=== PATIENT | female | born 1995 | race Caucasian/White ===

== ENCOUNTER 2016-09-08 22:12 | Emergency (ER) | payer BC, OTHER ==
[~2016-09-08] VITALS: Ht 167.6 cm; Wt 131.5 kg
[2016-09-08] MEDS ORDERED: NORT10SO PO (22:24)
[2016-09-08] MEDS ORDERED: VALT1TAB PO (23:22)
[2016-09-08] MEDS ORDERED: valACYclovir HCL 500 MG TAB PO ONE (23:30)
[2016-09-08 23:39] VITALS: BP 137/71
== END 2016-09-08 23:48 | disposition home or self-care (01) ==
LOC: M ED 23:25
DX: A60.09 Herpesviral infection of other urogenital tract (principal); N76.0 Acute vaginitis; F32.9 Major depressive disorder, single episode, unspecified

== ENCOUNTER 2017-12-20 19:36 | Emergency (ER) | payer BC, OTHER ==
[2017-12-20] MEDS: NS 1,000 ML IV (22:12)
[2017-12-20 22:22] LABS: BASO # 0.1 10^3/uL (0.0-0.2); BASO % 0.4 % (0.0-1.0); EOS # 0.1 10^3/uL (0.0-0.50); EOS % 0.7 % (0.0-3.0); HEMATOCRIT 41.8 % (36.0-47.0); HEMOGLOBIN 13.4 g/dl (12.0-15.5); IMMATURE GRANULOCYTE % 0.6 % (0-3.0); LYMPH % 23.8 % (24.0-44.0); MEAN CORPUSCULAR HEMOGLOBIN 26.5 pg (27.0-33.0); MEAN CORPUSCULAR HGB CONC 32.1 g/dl (32.0-36.5); MEAN CORPUSCULAR VOLUME 82.6 fl (80.0-96.0); MONO # 0.7 10^3/uL (0.0-0.8); MONO % 5.6 % (0.0-5.0); NEUTROPHILS # 8.7 10^3/uL (1.8-7.7); NEUTROPHILS % 68.9 % (36.0-66.0); PLATELET COUNT, AUTOMATED 414 10^3/uL (150-450); RED BLOOD COUNT 5.06 10^6/uL (4.00-5.40); RED CELL DISTRIBUTION WIDTH 14.2 % (11.5-14.5); WHITE BLOOD COUNT 12.6 10^3/uL (4.0-10.0)
[2017-12-20 22:29] LABS: KETONE, URINE AUTO RFX NEGATIVE (NEGATIVE); LEUKOCYTE ESTERASE UR AUTO RFX NEGATIVE (NEGATIVE); MUCUS, URINE RFX SMALL (NEGATIVE); NITRITE, URINE AUTO RFX NEGATIVE (NEGATIVE); RBC, URINE AUTO RFX 3 /HPF (0-3); SPECIFIC GRAVITY UR AUTO RFX 1.027 (1.002-1.035); SQUAM EPITHELIAL CELL UR AURFX 1 /HPF (0-6); WBC, URINE AUTO RFX 1 /HPF (0-3)
[2017-12-20 22:46] LABS: ALBUMIN 3.2 GM/DL (3.2-5.2); ALKALINE PHOSPHATASE 134 U/L (45-117); ALT/SGPT 18 U/L (12-78); AMYLASE 41 U/L (25-115); ANION GAP 8 MEQ/L (8-16); AST/SGOT 11 U/L (7-37); BILIRUBIN,DIRECT < 0.1 MG/DL (0.0-0.2); BILIRUBIN,TOTAL 0.1 MG/DL (0.2-1.0); BLOOD UREA NITROGEN 14 MG/DL (7-18); CALCIUM LEVEL 8.4 MG/DL (8.5-10.1); CARBON DIOXIDE LEVEL 24 MEQ/L (21-32); CHLORIDE LEVEL 109 MEQ/L (98-107); CREATININE FOR GFR 0.74 MG/DL (0.55-1.30); GLOMERULAR FILTRATION RATE > 60.0 (>60); GLUCOSE, FASTING 98 MG/DL (70-100); LIPASE 118 U/L (73-393); POTASSIUM SERUM 4.3 MEQ/L (3.5-5.1); SODIUM LEVEL 141 MEQ/L (136-145); TOTAL PROTEIN 7.8 GM/DL (6.4-8.2)
== END 2017-12-21 00:12 | disposition home or self-care (01) ==
LOC: M ED 12-21 00:12
DX: I88.0 Nonspecific mesenteric lymphadenitis (principal); F32.9 Major depressive disorder, single episode, unspecified; R16.1 Splenomegaly, not elsewhere classified; Z79.3 Long term (current) use of hormonal contraceptives; Z88.6 Allergy status to analgesic agent
CPT/HCPCS: 74176

== ENCOUNTER → 2017-12-20 | Outpatient (CLI) | payer BC, OTHER ==
[2017-12-20 13:54] LABS: BASO # 0.1 10^3/uL (0.0-0.2); BASO % 0.6 % (0.0-1.0); EOS # 0.1 10^3/uL (0.0-0.50); EOS % 0.7 % (0.0-3.0); HEMATOCRIT 45.5 % (36.0-47.0); HEMOGLOBIN 14.4 g/dl (12.0-15.5); IMMATURE GRANULOCYTE % 0.8 % (0-3.0); LYMPH # 2.2 10^3/uL (1.5-6.5); LYMPH % 18.6 % (24.0-44.0); MEAN CORPUSCULAR HEMOGLOBIN 26.2 pg (27.0-33.0); MEAN CORPUSCULAR HGB CONC 31.6 g/dl (32.0-36.5); MEAN CORPUSCULAR VOLUME 82.7 fl (80.0-96.0); MONO # 0.6 10^3/uL (0.0-0.8); MONO % 4.7 % (0.0-5.0); NEUTROPHILS # 8.8 10^3/uL (1.8-7.7); NEUTROPHILS % 74.6 % (36.0-66.0); PLATELET COUNT, AUTOMATED 385 10^3/uL (150-450); WHITE BLOOD COUNT 11.8 10^3/uL (4.0-10.0)
[2017-12-20 14:15] LABS: ALBUMIN 3.3 GM/DL (3.2-5.2); ALBUMIN/GLOBULIN RATIO 0.79 (1.00-1.93); ALKALINE PHOSPHATASE 147 U/L (45-117); ALT/SGPT 17 U/L (12-78); ANION GAP 10 MEQ/L (8-16); AST/SGOT 30 U/L (7-37); BILIRUBIN,TOTAL 0.4 MG/DL (0.2-1.0); BLOOD UREA NITROGEN 11 MG/DL (7-18); CALCIUM LEVEL 8.7 MG/DL (8.5-10.1); CARBON DIOXIDE LEVEL 23 MEQ/L (21-32); CHLORIDE LEVEL 106 MEQ/L (98-107); CREATININE FOR GFR 0.62 MG/DL (0.55-1.30); GLOMERULAR FILTRATION RATE > 60.0 (>60); GLUCOSE, FASTING 80 MG/DL (70-100); SODIUM LEVEL 139 MEQ/L (136-145); TOTAL PROTEIN 7.5 GM/DL (6.4-8.2)
[2017-12-20 14:24] LABS: POTASSIUM SERUM 5.4 MEQ/L (3.5-5.1)
== END ==
LOC: M WUC 12:13
DX: R10.30 Lower abdominal pain, unspecified (principal); M54.5 Low back pain
CPT/HCPCS: 80053

== ENCOUNTER → 2018-01-25 | Outpatient (REF) | payer BC, OTHER | LOC: M LAB REF 19:17 | DX: N39.0 Urinary tract infection, site not specified (principal) | CPT/HCPCS: 87086 ==

== ENCOUNTER → 2018-02-12 | Outpatient (CLI) | payer BC, OTHER ==
[~2018-02-12] MED LIST: GASTROGRAFIN SOLUTION 30ML (Q9963) As Ordered; ISOVUE-370 76% 100ML VIAL (Q9967) As Ordered
== END ==
LOC: M RAD 09:39
DX: R16.1 Splenomegaly, not elsewhere classified (principal); I88.0 Nonspecific mesenteric lymphadenitis
CPT/HCPCS: Q9963

== ENCOUNTER 2018-02-19 16:13 | Emergency (ER) | payer BC, OTHER ==
[2018-02-19] MEDS: NORCO, ANEXSIA 5/325MG TABLET (HYDROcodone/ACETAMINOPHEN) PO (18:43)
[2018-02-19 18:59] LABS: BASO # 0.1 10^3/uL (0.0-0.2); BASO % 0.6 % (0.0-1.0); EOS # 0.2 10^3/uL (0.0-0.50); EOS % 1.4 % (0.0-3.0); HEMATOCRIT 43.8 % (36.0-47.0); HEMOGLOBIN 14.5 g/dl (12.0-15.5); IMMATURE GRANULOCYTE % 0.8 % (0-3.0); LYMPH # 2.8 10^3/uL (1.5-6.5); LYMPH % 22.1 % (24.0-44.0); MEAN CORPUSCULAR HEMOGLOBIN 26.7 pg (27.0-33.0); MEAN CORPUSCULAR HGB CONC 33.1 g/dl (32.0-36.5); MEAN CORPUSCULAR VOLUME 80.7 fl (80.0-96.0); MONO # 0.8 10^3/uL (0.0-0.8); MONO % 6.5 % (0.0-5.0); NEUTROPHILS # 8.6 10^3/uL (1.8-7.7); NEUTROPHILS % 68.6 % (36.0-66.0); PLATELET COUNT, AUTOMATED 390 10^3/uL (150-450); RED BLOOD COUNT 5.43 10^6/uL (4.00-5.40); RED CELL DISTRIBUTION WIDTH 14.1 % (11.5-14.5); WHITE BLOOD COUNT 12.5 10^3/uL (4.0-10.0)
[2018-02-19 19:12] LABS: KETONE, URINE AUTO RFX NEGATIVE (NEGATIVE); LEUKOCYTE ESTERASE UR AUTO RFX 2+ (NEGATIVE); NITRITE, URINE AUTO RFX NEGATIVE (NEGATIVE); RBC, URINE AUTO RFX 9 /HPF (0-3); SPECIFIC GRAVITY UR AUTO RFX 1.026 (1.002-1.035); SQUAM EPITHELIAL CELL UR AURFX 3 /HPF (0-6); WBC, URINE AUTO RFX 20 /HPF (0-3)
[2018-02-19 21:18] LABS: CHLAMYDIA DNA AMPLIFICATION NEGATIVE (NEGATIVE); GC DNA AMPLIFICATION NEGATIVE (NEGATIVE)
[2018-02-19] MEDS: metroNIDAZOLE (FLAGYL) 500 MG TAB PO (21:49)
== END 2018-02-19 21:58 | disposition home or self-care (01) ==
LOC: M ED 16:13
DX: N76.0 Acute vaginitis (principal); N83.291 Other ovarian cyst, right side; N94.10 Unspecified dyspareunia; Z79.3 Long term (current) use of hormonal contraceptives; Z88.8 Allergy status to other drugs, medicaments and biological substances
CPT/HCPCS: 76856

== ENCOUNTER → 2018-03-12 | Outpatient (REF) | payer BC, OTHER | LOC: M LAB REF 16:51 | DX: J03.90 Acute tonsillitis, unspecified (principal) | CPT/HCPCS: 87081 ==

== ENCOUNTER → 2018-03-20 | Outpatient (REF) | payer OTHER | LOC: M LAB REF 13:59 | DX: Z12.4 Encounter for screening for malignant neoplasm of cervix (principal) ==

== ENCOUNTER → 2018-04-18 | Outpatient (REF) | payer OTHER ==
[2018-04-18 16:55] LABS: APPEARANCE, URINE MANUAL HAZY (CLEAR); COLOR, URINE MANUAL YELLOW (YELLOW)
[2018-04-18 16:56] LABS: BILIRUBIN, URINE MANUAL NEGATIVE (NEGATIVE); BLOOD URINE MANUAL POSITIVE (NEGATIVE); GLUCOSE, URINE (UA) MANUAL NEGATIVE (NEGATIVE); KETONE, URINE MANUAL NEGATIVE (NEGATIVE); LEUKOCYTE ESTERASE, URINE MAN POSITIVE (NEGATIVE); MICROSCOPIC INDICATED? MAN YES (NO); NITRITE, URINE MANUAL POSITIVE (NEGATIVE); PROTEIN, URINE MANUAL TRACE mg/dL (NEGATIVE); SPECIFIC GRAVITY,URINE MANUAL 1.015 (1.002-1.035); UROBILINOGEN, URINE MANUAL NORMAL (NORMAL)
[2018-04-18 16:57] LABS: AMORPHOUS SEDIMENT, URINE MOD AMOUNT (NEGATIVE); BACTERIA, URINE SMALL AMOUNT; HYALINE CAST, URINE NONE SEEN /lpf (0-1); MICROSCOPIC EXAM UNSPUN; SQUAMOUS EPITHELIAL CELL URINE LARGE AMOUNT /hpf (SMALL AMT)
== END ==
LOC: M LAB REF 16:39
DX: N39.0 Urinary tract infection, site not specified (principal)
CPT/HCPCS: 81000

== ENCOUNTER → 2018-05-11 | Outpatient (CLI) | payer BC, OTHER ==
[~2018-05-11] MED LIST changes: +FLAG500T PO; +FLUO10CA8 PO; +FLUO10TA30 PO; -GASTROGRAFIN SOLUTION 30ML (Q9963) As Ordered; +GASTROGRAFIN SOLUTION 30ML (Q9963) As Ordered ONE; -ISOVUE-370 76% 100ML VIAL (Q9967) As Ordered; +ISOVUE-370 76% 100ML VIAL (Q9967) As Ordered ONE; +LORA-243 PO; +NEXP1IMP SC; +NORT10SO PO; +SING10TA32 PO; +VALT1TAB PO
--- NOTE | 2018-05-11 17:04 | REP ---
Clinical: History of mesenteric adenitis and splenomegaly. Technique: Axial contrast enhanced images from the lung bases to the pubic symphysis using oral (per protocol) and 100 ml Isovue 370 intravenous contrast material with coronal and sagittal re-formations. Comparison: 02/12/2018, 12/20/2017. Findings: Lung bases are clear. Visualized heart and pericardium normal. Liver, spleen, pancreas, gallbladder, bilateral adrenal glands and kidneys are normal. Persistent prominent lymph nodes in the right lower quadrant/pericecal region are unchanged along with few stable mesenteric lymph nodes. No fatty infiltration or further findings to suggest acute process. The enteric system is without obstruction or acute inflammatory process. Normal terminal ileum, cecum and appendix are identified in the right lower quadrant. Pelvis demonstrates normal bladder and age-appropriate uterus/left adnexa with enlarge right ovarian cyst now measuring 3.5 cm maximal diameter (previously measuring 2.7 cm). No pelvic fluid or ascites. No retroperitoneal adenopathy. No free air. Abdominal aorta and vasculature without aneurysm or dissection. Surrounding musculoskeletal structures are intact. Impression: 1. Persistent prominent lymph nodes within the mid mesentery and right lower quadrant without associated fatty infiltration to suggest acute process. 2. 3.5 cm right ovarian cyst minimally increased in size from prior examination. 3. No further acute abdominopelvic pathology appreciated. Electronically Signed by Michael Bull MD 05/11/2018 04:56 P
== END ==
LOC: M RAD 10:59
PROVIDERS: ATTEND Internal Medicine Hematology & Oncology
DX: I88.0 Nonspecific mesenteric lymphadenitis (principal)
CPT/HCPCS: 74177; Q9963; Q9967

== ENCOUNTER → 2018-08-20 | Outpatient (CLI) | payer BC, OTHER ==
[~2018-08-20] MED LIST changes: -GASTROGRAFIN SOLUTION 30ML (Q9963) As Ordered ONE; -ISOVUE-370 76% 100ML VIAL (Q9967) As Ordered ONE
--- NOTE | 2018-08-20 10:21 | REP ---
ULTRASOUND ABDOMEN WITH DUPLEX DOPPLER EVALUATION OF PORTAL VASCULATURE: Real-time sonographic evaluation of the abdomen performed. The gallbladder demonstrates on evidence of intraluminal sludge and calculi, wall thickening or pericholecystic fluid. There is no intrahepatic or extrahepatic biliary dilatation common bile duct measuring 4 mm. The liver demonstrates diffuse heterogeneous increased echotexture, compatible with diffuse fibrofatty infiltration. There is hepatomegaly, length of the liver in the mid clavicular line is 21.1 cm. Hyperechoic nodule in the later right lobe measures 1.4 cm in diameter most consistent with hemangioma. Pancreas demonstrates no mass. Spleen measures 1.8 x 5.1 x 12.4 cm with splenic index 746 mL. No intrinsic abnormality is seen. The kidneys are normal in size and echotexture, right kidney measuring 12.8 x 4.9 x 3.8 cm and left kidney 12.9 x 5.4 x 5.2 cm. There is no renal mass, hydronephrosis or nephrolithiasis. The aorta is normal in caliber with no aneurysm proximally measuring 2.2 cm in AP dimension and distally 1.7 cm. There is no ascites. Real-time ultrasound evaluation and duplex Doppler interrogation of the portal vasculature is performed. Main portal vein measures 13 mm in diameter. There is normal direction of flow in the splenic and superior mesenteric veins as well as the portal veins. Peak velocity in the main portal vein is 35.3 cm/s. Peak velocity of the splenic vein is 24.9 cm/s and in the superior mesenteric vein 14.8 cm. There is no hepatic vein thrombosis. Normal wave forms are seen. Peak systolic velocity of the main hepatic artery is 87.6 cm/s with resistive index 0.65. IMPRESSION: Mild diffuse fibrofatty infiltration of the liver. Hyperechoic nodule in the right lobe of the liver 1.4 cm in diameter most consistent with hemangioma. Mild splenomegaly. Normal direction of flow in the portal vasculature with no thrombus. Electronically Signed by Huey Roberts MD 08/20/2018 12:46 P
== END ==
LOC: M RAD 08:49
PROVIDERS: ATTEND Internal Medicine Gastroenterology
DX: R16.1 Splenomegaly, not elsewhere classified (principal); K76.0 Fatty (change of) liver, not elsewhere classified; K76.89 Other specified diseases of liver

== ENCOUNTER → 2023-07-20 | Outpatient (CLI) | payer OTHER ==
[~2023-07-20] MED LIST changes: +ETON68IM SC; +FLUO10CA18 PO; -FLUO10CA8 PO; +MONT-5 PO; -NEXP1IMP SC; -SING10TA32 PO; +TOPI25TA10 PO
[2023-07-20 17:53] LABS: HEMATOCRIT 38.5 % (36.0-47.0); HEMOGLOBIN 12.2 g/dl (12.0-15.5); MEAN CORPUSCULAR HEMOGLOBIN 26.3 pg (27.0-33.0); MEAN CORPUSCULAR HGB CONC 31.7 g/dl (32.0-36.5); PLATELET COUNT, AUTOMATED 336 10^3/uL (150-450); RED BLOOD COUNT 4.64 10^6/uL (4.00-5.40); WHITE BLOOD COUNT 12.8 10^3/uL (4.0-10.0)
[2023-07-20 18:48] LABS: HIV 1&2 SCREEN NEGATIVE (NEGATIVE)
[2023-07-20 18:57] LABS: HEPATITIS C VIRUS ABY INDEX 0.02 INDEX (<0.8)
[2023-07-20 19:40] LABS: GC DNA AMPLIFICATION NEGATIVE (NEGATIVE)
== END ==
LOC: M PLALAB 15:40
PROVIDERS: ATTEND Advanced Practice Midwife
DX: Z34.01 Encounter for supervision of normal first pregnancy, first trimester (principal)

== ENCOUNTER → 2023-08-18 | Outpatient (CLI) | payer OTHER | LOC: M PLALAB 13:49 | PROVIDERS: ATTEND Specialist | DX: Z34.81 Encounter for supervision of other normal pregnancy, first trimester (principal) ==

== ENCOUNTER → 2023-10-18 | Outpatient (CLI) | payer OTHER ==
[~2023-10-18] MED LIST changes: +FLUO-290 PO; -FLUO10CA18 PO
== END ==
LOC: M RAD 15:25
PROVIDERS: ATTEND Obstetrics & Gynecology
DX: Z34.92 Encounter for supervision of normal pregnancy, unspecified, second trimester (principal)

== ENCOUNTER → 2023-11-29 | Outpatient (CLI) | payer OTHER | LOC: M RAD 12:03 | PROVIDERS: ATTEND Advanced Practice Midwife | DX: Z34.02 Encounter for supervision of normal first pregnancy, second trimester (principal) ==

== ENCOUNTER → 2023-12-15 | Outpatient (CLI) | payer OTHER ==
[2023-12-15 15:32] LABS: HEMATOCRIT 35.1 % (36.0-47.0); HEMOGLOBIN 11.2 g/dl (12.0-15.5); MEAN CORPUSCULAR HEMOGLOBIN 26.3 pg (27.0-33.0); MEAN CORPUSCULAR HGB CONC 31.9 g/dl (32.0-36.5); MEAN CORPUSCULAR VOLUME 82.4 fl (80.0-96.0); PLATELET COUNT, AUTOMATED 365 10^3/uL (150-450); RED BLOOD COUNT 4.26 10^6/uL (4.00-5.40); WHITE BLOOD COUNT 14.2 10^3/uL (4.0-10.0)
[2023-12-15 15:33] LABS: GLUCOSE CHALLENGE TEST 1 HOUR 127 MG/DL (LESS THAN 140)
[2023-12-15 16:12] LABS: HIV 1&2 SCREEN NEGATIVE (NEGATIVE)
[2023-12-15 16:20] LABS: HEPATITIS C VIRUS ABY INDEX < 0.02 INDEX (<0.8)
[2023-12-15 17:01] LABS: GC DNA AMPLIFICATION NEGATIVE (NEGATIVE)
[2023-12-15 17:29] LABS: LDH LACTATE DEHYDROGENASE 135 U/L (120-246)
[2023-12-15 17:30] LABS: ALT/SGPT < 9 U/L (7.0-40); AST/SGOT < 8 U/L (<34); BILIRUBIN,TOTAL 0.2 MG/DL (0.3-1.2); CREATININE FOR GFR 0.47 MG/DL (0.55-1.30); GLOMERULAR FILTRATION RATE > 60.0 (>60); URIC ACID 4.4 MG/DL (3.1-7.8)
[2023-12-15 18:35] LABS: CREATININE,RANDOM URINE 109.7 MG/DL
[2023-12-15 18:36] LABS: TOTAL PROTEIN,RANDOM URINE < 6.0 MG/DL (0.0-14.0)
== END ==
LOC: M PLALAB 12:38
PROVIDERS: ATTEND Obstetrics & Gynecology
DX: Z34.80 Encounter for supervision of other normal pregnancy, unspecified trimester (principal)

== ENCOUNTER → 2024-01-26 | Outpatient (REF) | payer OTHER ==
[~2024-01-26] MED LIST changes: +PRENTAB9 PO; +TUMS500C PO
== END ==
LOC: M SFHCWAGY 15:02
PROVIDERS: ATTEND Obstetrics & Gynecology
DX: Z36.85 Encounter for antenatal screening for Streptococcus B (principal); Z3A.35 35 weeks gestation of pregnancy

== ENCOUNTER → 2024-01-30 | Outpatient (CLI) | payer OTHER ==
[~2024-01-30] MED LIST changes: -PRENTAB9 PO; -TUMS500C PO
[2024-01-30 10:28] LABS: HEMATOCRIT 37.6 % (36.0-47.0); HEMOGLOBIN 11.9 g/dl (12.0-15.5); MEAN CORPUSCULAR HEMOGLOBIN 25.5 pg (27.0-33.0); MEAN CORPUSCULAR HGB CONC 31.6 g/dl (32.0-36.5); MEAN CORPUSCULAR VOLUME 80.7 fl (80.0-96.0); PLATELET COUNT, AUTOMATED 397 10^3/uL (150-450); RED BLOOD COUNT 4.66 10^6/uL (4.00-5.40); WHITE BLOOD COUNT 12.7 10^3/uL (4.0-10.0)
[2024-01-30 10:51] LABS: URIC ACID 4.8 MG/DL (3.1-7.8)
[2024-01-30 10:52] LABS: LDH LACTATE DEHYDROGENASE 141 U/L (120-246)
[2024-01-30 10:54] LABS: ALT/SGPT < 9 U/L (7.0-40); AST/SGOT < 8 U/L (<34); BILIRUBIN,TOTAL 0.2 MG/DL (0.3-1.2); CREATININE FOR GFR 0.48 MG/DL (0.55-1.30); GLOMERULAR FILTRATION RATE > 60.0 (>60)
[2024-01-30 14:09] LABS: TOTAL PROTEIN,RANDOM URINE 7.4 MG/DL (0.0-14.0)
[2024-01-30 14:14] LABS: CREATININE,RANDOM URINE 61.2 MG/DL
== END ==
LOC: M PLALAB 08:46
PROVIDERS: ATTEND Specialist
DX: O13.3 Gestational [pregnancy-induced] hypertension without significant proteinuria, third trimester (principal); Z3A.00 Weeks of gestation of pregnancy not specified

== ENCOUNTER 2024-02-07 10:50 | Inpatient (IN) | payer OTHER ==
[2024-02-07] VITALS (12 sets, daily range): BP systolic 122–142; BP diastolic 60–91
[~2024-02-07] VITALS: Ht 167.6 cm; Wt 171.4 kg
[2024-02-07] MEDS ORDERED: PRENTAB9 PO (11:22)
[2024-02-07] MEDS ORDERED: TUMS500C PO (11:22)
[2024-02-07] MEDS ORDERED: VALT1TAB PO (11:22)
[2024-02-07] MEDS ORDERED: HOME MED LIST COMPLETE! XX SCH (11:25)
[2024-02-07] MEDS ORDERED: LIDOCAINE 1% MDV 20ML VIAL INFIL PRN (12:05)
[2024-02-07] MEDS ORDERED: CARBOPROST TROMETHAMINE 250 MCG/ML AMP IM PRN (12:05)
[2024-02-07] MEDS ORDERED: TRANEXAMIC ACID INJection 1,000 MG in NS 100 ML IV PRN (12:05)
[2024-02-07] MEDS ORDERED: OXYTOCIN INJ 10UNITS/ML 1ML VIAL IM PRN (12:05)
[2024-02-07] MEDS ORDERED: PENICILLIN G POTASSIUM 5 MU IV 5 MU in D5W MINI-BAG PLUS 100 ML IV STA (12:05)
[2024-02-07] MEDS ORDERED: OXYTOCIN DRIP 30 UNITS in IV 1 EA IV PRN (12:05)
[2024-02-07] MEDS: miSOPROStol 50MCG 1/2 TABLET PO SCH (12:36)
[2024-02-07 12:52] LABS: HEMOGLOBIN 12.4 g/dl (12.0-15.5); MEAN CORPUSCULAR HEMOGLOBIN 26.1 pg (27.0-33.0); MEAN CORPUSCULAR HGB CONC 32.6 g/dl (32.0-36.5); MEAN CORPUSCULAR VOLUME 79.8 fl (80.0-96.0); PLATELET COUNT, AUTOMATED 402 10^3/uL (150-450); RED BLOOD COUNT 4.76 10^6/uL (4.00-5.40); WHITE BLOOD COUNT 15.8 10^3/uL (4.0-10.0)
[2024-02-07 13:15] LABS: LDH LACTATE DEHYDROGENASE 154 U/L (120-246)
[2024-02-07 13:22] LABS: ALT/SGPT < 9 U/L (7.0-40); AST/SGOT < 8 U/L (<34); BILIRUBIN,TOTAL 0.2 MG/DL (0.3-1.2); CREATININE FOR GFR 0.46 MG/DL (0.55-1.30); GLOMERULAR FILTRATION RATE > 60.0 (>60)
[2024-02-07 13:45] LABS: TOTAL PROTEIN,RANDOM URINE 17.5 MG/DL (0.0-14.0)
[2024-02-07 13:50] LABS: HEPATITIS C VIRUS ABY INDEX < 0.02 INDEX (<0.8)
[2024-02-07 13:50] LABS: CREATININE,RANDOM URINE 112.6 MG/DL
[2024-02-07] MEDS ORDERED: PEN G POT 3,000,000 UNIT/50 ML 3,000,000 UNIT in IV 1 EA IV SCH (16:05)
[2024-02-08] VITALS (38 sets, daily range): BP systolic 122–191; BP diastolic 61–117; O2SAT 97
[2024-02-08] MEDS: OXYTOCIN DRIP 30 UNITS in IV 1 EA IV SCH (08:21)
[2024-02-08] MEDS: LR 1,000 ML IV SCH (08:21)
[2024-02-08] MEDS: BUTORPHANOL 2 MG/ML 1ML VIAL IV ONE (09:49)
[2024-02-08] MEDS: PROMETHAZINE 25MG/ML 1ML VIAL IV ONE (09:49)
[2024-02-08] MEDS ORDERED: LR 500 ML IV PRN (11:20)
[2024-02-08] MEDS ORDERED: ePHEDrine SULFATE 25 MG/5 ML(5MG/ML) SYRINGE IVP PRN (11:20)
[2024-02-08] MEDS ORDERED: ONDANSETRON 4MG 2ML VIAL IV PRN (11:20)
[2024-02-08] MEDS ORDERED: NALOXONE INJ 0.4MG/1ML VIAL IV PRN (11:20)
[2024-02-08] MEDS ORDERED: EPIDURAL/PCA KEYS XX PRN (11:20)
[2024-02-08] MEDS ORDERED: diphenhydrAMINE 50MG/ML VIAL IV PRN (11:20)
[2024-02-08] MEDS: FENTANYL/ROPIVACAINE/NACL BAG 100 ML EPIDURAL SCH (12:12)
[2024-02-08] MEDS: PENICILLIN G POTASSIUM 5 MU IV 5 MU in D5W MINI-BAG PLUS 100 ML IV STA (13:10)
[2024-02-08] MEDS ORDERED: RHO(D) IMMUNE GLOBULIN/MALTOSE 500MCG(2500IU)/2.2ML VIAL (WINRHO) IM SCH (15:35)
[2024-02-08] MEDS ORDERED: DIBUCAINE 1% OINTMENT 30GM TOP PRN (15:35)
[2024-02-08] MEDS ORDERED: METHYLERGONOVINE MALEATE 0.2 MG TAB PO PRN (15:35)
[2024-02-08] MEDS ORDERED: PEN G POT 3,000,000 UNIT/50 ML 3,000,000 UNIT in IV 1 EA IV SCH (17:00)
[2024-02-08] MEDS: IBUPROFEN 800 MG TAB PO PRN (17:07)
[2024-02-09 06:00] VITALS: BP 142/86; O2SAT 98
[2024-02-09 11:05] VITALS: BP 132/75; O2SAT 99
[2024-02-09] MEDS: PRENATAL VITAMINS CHEWABLE TABLET PO SCH (12:23)
[2024-02-09] MEDS: IBUPROFEN 600MG TAB PO PRN (16:35)
[2024-02-09 18:21] VITALS: BP 132/78; O2SAT 98
[2024-02-09] MEDS: DOCUSATE SODIUM 100MG CAPSULE PO PRN (20:02)
[2024-02-10] MEDS: ACETAMINOPHEN TAB 650MG DOSE (2X325MG) PO PRN (01:40)
[2024-02-10 05:58] VITALS: BP 144/79; O2SAT 97
[2024-02-10] MEDS: MEASLES,MUMPS,RUBELLA VACCINE INJ (MMR-II) SC.IMMUN ONE (09:00)
[2024-02-10] MEDS: ACETAMINOPHEN 500 MG TAB PO PRN (09:55)
== END 2024-02-10 14:00 | disposition home or self-care (01) | DRG 807 ==
LOC: M LDI 10:50 → M OBS 02-08 17:55
PROVIDERS: ADMIT Advanced Practice Midwife; ATTEND Advanced Practice Midwife
PROC: 3E0DXGC Introduction of Other Therapeutic Substance into Mouth and Pharynx, External Approach (ICD-10-PCS; 2024-02-07)
PROC: 10E0XZZ Delivery of Products of Conception, External Approach (ICD-10-PCS; principal; 2024-02-08)
PROC: 10907ZC Drainage of Amniotic Fluid, Therapeutic from Products of Conception, Via Natural or Artificial Opening (ICD-10-PCS; 2024-02-08)
DX: O13.4 Gestational [pregnancy-induced] hypertension without significant proteinuria, complicating childbirth (principal); Z37.0 Single live birth; Z3A.37 37 weeks gestation of pregnancy; E66.01 Morbid (severe) obesity due to excess calories; O99.214 Obesity complicating childbirth; O99.824 Streptococcus B carrier state complicating childbirth

== ENCOUNTER → 2025-04-07 | Outpatient (REF) | payer OTHER ==
[~2025-04-07] MED LIST changes: +ACET-683 PO; -FLUO10TA30 PO; +FLUO1TAB2 PO; +METH-1164 PO; +PRED10TA2 PO; +PRENTAB9 PO; +TOPI-256 PO; -TOPI25TA10 PO; +TUMS500C PO
[2025-04-07 14:25] LABS: TOTAL PROTEIN,RANDOM URINE < 6.0 MG/DL (0.0-14.0)
[2025-04-07 15:18] LABS: Trichomonas vaginalis (AMP) NOT DETECTED (NEGATIVE)
[2025-04-07 15:42] LABS: GC DNA AMPLIFICATION NEGATIVE (NEGATIVE)
== END ==
LOC: M SFHCWAGY 13:01
PROVIDERS: ATTEND Obstetrics & Gynecology
DX: Z34.91 Encounter for supervision of normal pregnancy, unspecified, first trimester (principal); Z87.59 Personal history of other complications of pregnancy, childbirth and the puerperium

== ENCOUNTER → 2025-04-08 | Outpatient (CLI) | payer OTHER ==
[2025-04-08 18:29] LABS: PLATELET COUNT, AUTOMATED 381 10^3/uL (150-450)
[2025-04-08 18:41] LABS: ESTIMATED AVERAGE GLUCOSE 111.0 MG/DL (60-110)
[2025-04-08 18:48] LABS: LDH LACTATE DEHYDROGENASE 188 U/L (120-246)
[2025-04-08 18:49] LABS: ALT/SGPT 13 U/L (7.0-40); AST/SGOT 11 U/L (<34); CREATININE FOR GFR 0.64 MG/DL (0.55-1.30); GLOMERULAR FILTRATION RATE > 90.0 (>60)
[2025-04-08 19:15] LABS: HIV 1&2 SCREEN NEGATIVE (NEGATIVE)
[2025-04-08 19:23] LABS: HEPATITIS C VIRUS ABY INDEX < 0.02 INDEX (<0.8)
== END ==
LOC: M PLALAB 15:58
PROVIDERS: ATTEND Obstetrics & Gynecology
DX: Z34.91 Encounter for supervision of normal pregnancy, unspecified, first trimester (principal); Z87.59 Personal history of other complications of pregnancy, childbirth and the puerperium